=== PATIENT | male | born 1985 | race Caucasian/White ===

== ENCOUNTER 2024-03-02 08:13 | Outpatient (RCR) | payer BC, OTHER, SELFPAY ==
--- NOTE | 2024-03-02 10:22 | CTCCONSULT_ITS ---
[address] [address] RE: DOM SAAVEDRA D.O.B.: 1985 AGE: 38 DATE OF CONSULTATION: 03/02/2024 DIAGNOSIS: Elevated ferritin REFERRING PHYSICIAN: Kaia Figueredo PRIMARY PHYSICIAN :Kaia Figueredo REASON FOR CONSULTATION: Elevated ferritin concern for hemochromatosis HISTORY OF PRESENT ILLNESS: Patient is 38-year-old male who was diagnosed with Hodgkin lymphoma in 2014. Patient was treated wit h chemoradiation. His lymphoma was in the chest and lymph nodes. He had recurrence after 2 years an d at that time was treated with chemotherapy and autologous bone marrow transplant. As per patient h e has been in remission since then. He has never been told that he has elevated iron levels. No sim ilar complaints in the family. After transplant patient Says that his hormone started dysfunctioning and he was diagnosed with hypothyroidism as well as low testosterone levels. 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 GI: No nausea, vomiting, diarrhea or constipation. CVS: No palpitations or angina pains. Respiratory: No cough, chest pain or shortness of breath. VITAL SIGNS: Date 03/02/2024 Time 8:20 AM Vital Signs, Weight and PS ? ??T (F) (F) 97.8 ??P 92 ??B/P (mmHg) 151/96 ??Height (in) (inch) 73 ??Weight (lb) (lb) 225 ??BSA(D) (m*2) 2.26 PHYSICAL EXAMINATION: Conjunctivae is white. Oral cavity is dry. Chest is clear to auscultation. No wheezes or rales audible. CVS: Rhythm regular, no murmurs or gallops present. Abdomen is soft. No hepatosplenomegaly. Extremities: No pedal edema or cyanosis. LABORATORY DATA: Date Time ASSESSMENT: Elevated ferritin concern for hemochromatosis PLAN: ??Patient's ferritin is more than 2200 Reviewed imaging and shows that patient's liver is enlarged No masses in the liver Will get JAK2 erythropoietin and HFE panel Will get FibroScan for liver Will get quantification of iron in the liver by MRI Will start on phlebotomy to keep ferritin below 100 as long as patient's hemoglobin is at least 10 Will do phlebotomy 500 mL of whole blood and replace it with 1 L of fluid every week RTC in 4 weeks with above workup ORDERS: Comprehensive Metabolic Panel - 12 + CBC with Auto Diff Hereditary Hemochromatosis DNA analysis + Ferritin LD - 2 Mutation Quant + Erythropoieten Level MD Follow Up 4 Week + RETURN TO CLINIC: cc: Anthony Figueredo, Referring: Kaia Figueredo Electronically Signed 03/02/2024 at 10:19 AM Mat Frances MD Patient: DOM SAAVEDRA : 1985 MR#: [id number] Account: [id number] FOLLOW UP NOTE Page 2 of 3
== END 2024-03-29 23:59 | disposition home or self-care (01) ==
LOC: SCTC 08:13
PROVIDERS: PCP Nurse Practitioner Family; Referring Provider Nurse Practitioner Family; Visit Provider Internal Medicine Hematology & Oncology
DX: R79.89 Other specified abnormal findings of blood chemistry (principal); Z85.71 Personal history of Hodgkin lymphoma
CPT/HCPCS: 99213; G0463

== ENCOUNTER → 2024-03-18 | Outpatient (CLI) | payer BC, OTHER, SELFPAY ==
--- NOTE | 2024-03-18 10:00 | XR_ITS ---
Examination: Liver Elastography Exam date and time: February 17, 2024 0942 hours INDICATIONS: Abnormal liver function tests on laboratory examination January 11, 2024 FINDINGS: Liver 17.1 cm fatty liver irregular contour Normal hepatopedal portal venous flow Hepatic veins patent Tissue stiffness average 1.4 m/s, mild to moderate liver fibrosis IMPRESSION: Mild to moderate liver fibrosis
== END | disposition home or self-care (01) ==
LOC: CDIM 09:26
PROVIDERS: PCP Nurse Practitioner Family; Referring Provider Internal Medicine Hematology & Oncology; Visit Provider Internal Medicine Hematology & Oncology
DX: K74.00 Hepatic fibrosis, unspecified (principal)
CPT/HCPCS: 76981

== ENCOUNTER → 2024-04-18 | Outpatient (CLI) | payer BC, OTHER, SELFPAY ==
[2024-04-18 16:41] LABS: Basophils # (Auto) 0.1 Thou/mm3 (0.0-0.2); Basophils % (Auto) 1 % (0-2.5); Eosinophils # (Auto) 0.2 Thou/mm3 (0.0-0.5); Eosinophils % (Auto) 2 % (0-10); Hematocrit 41.7 % (41.0-53.0); Immature Granulocytes % (Auto) 1 % (0-0); Immature Granulocytes Auto 0.07 Thou/mm3 (0.00-0.00); Lymphocytes # (Auto) 2.9 Thou/mm3 (1.0-4.8); Lymphocytes % (Auto) 30 % (10-50); Mean Corpuscular HGB Conc 33.6 g/dl (31.0-37.0); Mean Corpuscular Hemoglobin 33.2 pg (25.0-35.0); Mean Corpuscular Volume 99 fL (80-100); Monocytes # (Auto) 0.8 Thou/mm3 (0.0-0.8); Monocytes % (Auto) 8 % (0-12); Neutrophils # (Auto) 5.7 Thou/mm3 (1.8-7.7); Neutrophils % (Auto) 59 % (37-80); Nucleated Red Blood Cell % 0 /100 WBC (0); Platelet Count 320 Thou/mm3 (140-440); Red Blood Count 4.22 Miln/mm3 (4.50-5.90); White Blood Count 9.6 Thou/mm3 (3.8-10.6)
[2024-04-18 16:53] LABS: Alanine Aminotransferase 83 U/L (10-49); Albumin, Serum 4.4 gm/dL (3.5-5.0); Albumin/Globulin Ratio 1.6 (1.2-2.2); Alkaline Phosphatase 66 U/L (46-116); Anion Gap 8 (7-16); Aspartate Amino Transferase 58 U/L (0-34); BUN/Creatinine Ratio 11 Ratio (12-20); Bilirubin,Total 0.5 mg/dL (0.3-1.2); Blood Urea Nitrogen 14 mg/dL (9-23); Calcium 9.4 mg/dL (8.3-10.6); Calcium (Corrected) 9.4 mg/dL (8.5-10.1); Carbon Dioxide 28.1 mMol/L (20.0-31.0); Chloride 103 mMol/L (98-107); Creatinine (Component) 1.3 mg/dL (0.6-1.3); Globulin 2.7 gm/dL (2.3-3.5); Glucose 83 mg/dL (74-106); Osmolality,Calculated 277 (275-295); Potassium 4.3 mMol/L (3.4-5.1); Sodium 139 mMol/L (136-145); Total Protein 7.1 gm/dL (5.7-8.2); eGFR > 60 See Note
== END | disposition home or self-care (01) ==
LOC: SCTO 15:05
PROVIDERS: PCP Nurse Practitioner Family; Referring Provider Internal Medicine Hematology & Oncology; Visit Provider Internal Medicine Hematology & Oncology
DX: R79.0 Abnormal level of blood mineral (principal)
CPT/HCPCS: 36415; 80053; 85025

== ENCOUNTER → 2024-04-25 | Outpatient (CLI) | payer BC, OTHER, SELFPAY ==
[2024-04-25 16:19] LABS: Basophils % (Auto) 0 % (0-2.5); Eosinophils # (Auto) 0.1 Thou/mm3 (0.0-0.5); Eosinophils % (Auto) 1 % (0-10); Hematocrit 39.1 % (41.0-53.0); Hemoglobin 13.2 g/dL (13.5-16.0); Immature Granulocytes % (Auto) 1 % (0-0); Immature Granulocytes Auto 0.08 Thou/mm3 (0.00-0.00); Lymphocytes # (Auto) 3.2 Thou/mm3 (1.0-4.8); Lymphocytes % (Auto) 32 % (10-50); Mean Corpuscular HGB Conc 33.8 g/dl (31.0-37.0); Mean Corpuscular Hemoglobin 34.1 pg (25.0-35.0); Mean Corpuscular Volume 101 fL (80-100); Monocytes # (Auto) 0.8 Thou/mm3 (0.0-0.8); Monocytes % (Auto) 8 % (0-12); Neutrophils # (Auto) 5.7 Thou/mm3 (1.8-7.7); Neutrophils % (Auto) 57 % (37-80); Nucleated Red Blood Cell % 0 /100 WBC (0); Platelet Count 299 Thou/mm3 (140-440); RDW Standard Deviation 47.8 fL (35.1-43.9); Red Blood Count 3.87 Miln/mm3 (4.50-5.90); White Blood Count 9.9 Thou/mm3 (3.8-10.6)
[2024-04-25 16:33] LABS: Ferritin 1016 ng/mL (10.5-307.3)
[2024-04-25 18:18] LABS: Alanine Aminotransferase 67 U/L (10-49); Albumin, Serum 4.4 gm/dL (3.5-5.0); Albumin/Globulin Ratio 1.8 (1.2-2.2); Alkaline Phosphatase 64 U/L (46-116); Anion Gap 10 (7-16); Aspartate Amino Transferase 38 U/L (0-34); BUN/Creatinine Ratio 15 Ratio (12-20); Bilirubin,Total 0.4 mg/dL (0.3-1.2); Blood Urea Nitrogen 19 mg/dL (9-23); Calcium 9.6 mg/dL (8.3-10.6); Calcium (Corrected) 9.6 mg/dL (8.5-10.1); Carbon Dioxide 26.2 mMol/L (20.0-31.0); Chloride 105 mMol/L (98-107); Creatinine (Component) 1.3 mg/dL (0.6-1.3); Globulin 2.4 gm/dL (2.3-3.5); Glucose 90 mg/dL (74-106); Osmolality,Calculated 283 (275-295); Sodium 141 mMol/L (136-145); Total Protein 6.8 gm/dL (5.7-8.2); eGFR > 60 See Note
== END | disposition home or self-care (01) ==
LOC: SCTO 14:56
PROVIDERS: PCP Nurse Practitioner Family; Referring Provider Internal Medicine Hematology & Oncology; Visit Provider Internal Medicine Hematology & Oncology
DX: R79.0 Abnormal level of blood mineral (principal)
CPT/HCPCS: 36415; 80053; 82728; 85025

== ENCOUNTER 2024-04-26 14:40 | Outpatient (RCR) | payer BC, OTHER, SELFPAY ==
[2024-04-19 15:08] LABS: Ferritin 1422 ng/mL (10.5-307.3)
== END 2024-04-29 23:59 | disposition home or self-care (01) ==
LOC: SCTC 14:40
PROVIDERS: PCP Nurse Practitioner Family; Referring Provider Nurse Practitioner Family; Visit Provider Internal Medicine Hematology & Oncology
DX: R79.0 Abnormal level of blood mineral (principal)
CPT/HCPCS: 82728; 99195; J7030

== ENCOUNTER → 2024-05-02 | Outpatient (CLI) | payer BC, OTHER, SELFPAY ==
[2024-05-02 16:00] LABS: Misc Send Out* See Sep Rpt
[2024-05-02 16:36] LABS: Basophils # (Auto) 0.1 Thou/mm3 (0.0-0.2); Basophils % (Auto) 1 % (0-2.5); Eosinophils # (Auto) 0.2 Thou/mm3 (0.0-0.5); Eosinophils % (Auto) 2 % (0-10); Hematocrit 35.5 % (41.0-53.0); Hemoglobin 12.3 g/dL (13.5-16.0); Immature Granulocytes % (Auto) 1 % (0-0); Lymphocytes # (Auto) 2.6 Thou/mm3 (1.0-4.8); Lymphocytes % (Auto) 26 % (10-50); Mean Corpuscular HGB Conc 34.6 g/dl (31.0-37.0); Mean Corpuscular Hemoglobin 34.5 pg (25.0-35.0); Mean Corpuscular Volume 99 fL (80-100); Monocytes # (Auto) 0.7 Thou/mm3 (0.0-0.8); Monocytes % (Auto) 7 % (0-12); Neutrophils # (Auto) 6.4 Thou/mm3 (1.8-7.7); Neutrophils % (Auto) 63 % (37-80); Nucleated Red Blood Cell # 0.05 Thou/mm3 (0.00-0.00); Nucleated Red Blood Cell % 1 /100 WBC (0); Platelet Count 284 Thou/mm3 (140-440); RDW Standard Deviation 47.9 fL (35.1-43.9); Red Blood Count 3.57 Miln/mm3 (4.50-5.90); White Blood Count 10.1 Thou/mm3 (3.8-10.6)
[2024-05-02 16:50] LABS: Alanine Aminotransferase 64 U/L (10-49); Albumin/Globulin Ratio 1.7 (1.2-2.2); Alkaline Phosphatase 63 U/L (46-116); Anion Gap 7 (7-16); Aspartate Amino Transferase 48 U/L (0-34); BUN/Creatinine Ratio 13 Ratio (12-20); Bilirubin,Total 0.5 mg/dL (0.3-1.2); Blood Urea Nitrogen 17 mg/dL (9-23); Calcium 9.3 mg/dL (8.3-10.6); Calcium (Corrected) 9.3 mg/dL (8.5-10.1); Carbon Dioxide 28.9 mMol/L (20.0-31.0); Chloride 104 mMol/L (98-107); Creatinine (Component) 1.3 mg/dL (0.6-1.3); Globulin 2.4 gm/dL (2.3-3.5); Glucose 87 mg/dL (74-106); Osmolality,Calculated 279 (275-295); Potassium 4.3 mMol/L (3.4-5.1); Sodium 140 mMol/L (136-145); Total Protein 6.4 gm/dL (5.7-8.2); eGFR > 60 See Note
[2024-05-02 16:54] LABS: Ferritin 1163 ng/mL (10.5-307.3)
== END | disposition home or self-care (01) ==
LOC: SCTO 15:39
PROVIDERS: PCP Family Medicine; Referring Provider Internal Medicine Hematology & Oncology; Visit Provider Internal Medicine Hematology & Oncology
DX: R79.89 Other specified abnormal findings of blood chemistry (principal)
CPT/HCPCS: 36415; 80053; 82668; 82728; 85025

== ENCOUNTER → 2024-05-09 | Outpatient (CLI) | payer BC, OTHER, SELFPAY ==
[2024-05-09 14:39] LABS: Basophils % (Auto) 1 % (0-2.5); Eosinophils # (Auto) 0.2 Thou/mm3 (0.0-0.5); Eosinophils % (Auto) 2 % (0-10); Hematocrit 39.4 % (41.0-53.0); Hemoglobin 12.8 g/dL (13.5-16.0); Immature Granulocytes % (Auto) 1 % (0-0); Immature Granulocytes Auto 0.06 Thou/mm3 (0.00-0.00); Lymphocytes # (Auto) 2.8 Thou/mm3 (1.0-4.8); Lymphocytes % (Auto) 33 % (10-50); Mean Corpuscular HGB Conc 32.5 g/dl (31.0-37.0); Mean Corpuscular Hemoglobin 33.5 pg (25.0-35.0); Mean Corpuscular Volume 103 fL (80-100); Monocytes # (Auto) 0.7 Thou/mm3 (0.0-0.8); Monocytes % (Auto) 8 % (0-12); Neutrophils # (Auto) 4.8 Thou/mm3 (1.8-7.7); Neutrophils % (Auto) 56 % (37-80); Nucleated Red Blood Cell % 0 /100 WBC (0); Platelet Count 331 Thou/mm3 (140-440); RDW Standard Deviation 54.4 fL (35.1-43.9); Red Blood Count 3.82 Miln/mm3 (4.50-5.90); White Blood Count 8.5 Thou/mm3 (3.8-10.6)
[2024-05-09 14:52] LABS: Ferritin 1072 ng/mL (10.5-307.3)
== END | disposition home or self-care (01) ==
LOC: SCTO 13:17
PROVIDERS: PCP Nurse Practitioner Family; Referring Provider Internal Medicine Hematology & Oncology; Visit Provider Internal Medicine Hematology & Oncology
DX: R79.89 Other specified abnormal findings of blood chemistry (principal)
CPT/HCPCS: 36415; 82728; 85025

== ENCOUNTER → 2024-05-17 | Outpatient (CLI) | payer BC, OTHER, SELFPAY ==
[2024-05-17 16:18] LABS: Misc Send Out* See Sep Rpt
[2024-05-17 18:42] LABS: Basophils # (Auto) 0.1 Thou/mm3 (0.0-0.2); Basophils % (Auto) 1 % (0-2.5); Eosinophils # (Auto) 0.2 Thou/mm3 (0.0-0.5); Eosinophils % (Auto) 2 % (0-10); Hematocrit 36.6 % (41.0-53.0); Hemoglobin 11.9 g/dL (13.5-16.0); Immature Granulocytes % (Auto) 1 % (0-0); Immature Granulocytes Auto 0.07 Thou/mm3 (0.00-0.00); Lymphocytes # (Auto) 2.7 Thou/mm3 (1.0-4.8); Lymphocytes % (Auto) 31 % (10-50); Mean Corpuscular HGB Conc 32.5 g/dl (31.0-37.0); Mean Corpuscular Hemoglobin 34.5 pg (25.0-35.0); Mean Corpuscular Volume 106 fL (80-100); Monocytes # (Auto) 0.8 Thou/mm3 (0.0-0.8); Monocytes % (Auto) 9 % (0-12); Neutrophils # (Auto) 4.9 Thou/mm3 (1.8-7.7); Neutrophils % (Auto) 56 % (37-80); Nucleated Red Blood Cell # 0.03 Thou/mm3 (0.00-0.00); Nucleated Red Blood Cell % 0 /100 WBC (0); Platelet Count 292 Thou/mm3 (140-440); Red Blood Count 3.45 Miln/mm3 (4.50-5.90); White Blood Count 8.8 Thou/mm3 (3.8-10.6)
[2024-05-17 18:54] LABS: Alanine Aminotransferase 66 U/L (10-49); Albumin/Globulin Ratio 1.7 (1.2-2.2); Alkaline Phosphatase 66 U/L (46-116); Anion Gap 10 (7-16); Aspartate Amino Transferase 45 U/L (0-34); BUN/Creatinine Ratio 12 Ratio (12-20); Bilirubin,Total 0.3 mg/dL (0.3-1.2); Blood Urea Nitrogen 14 mg/dL (9-23); Calcium 9.1 mg/dL (8.3-10.6); Calcium (Corrected) 9.1 mg/dL (8.5-10.1); Carbon Dioxide 27.5 mMol/L (20.0-31.0); Chloride 104 mMol/L (98-107); Creatinine (Component) 1.2 mg/dL (0.6-1.3); Globulin 2.3 gm/dL (2.3-3.5); Glucose 85 mg/dL (74-106); LDH (Lactate Dehydrogenase) 216 U/L (120-246); Osmolality,Calculated 280 (275-295); Potassium 4.2 mMol/L (3.4-5.1); Sodium 141 mMol/L (136-145); Total Protein 6.3 gm/dL (5.7-8.2); eGFR > 60 See Note
[2024-05-17 19:43] LABS: Ferritin 777 ng/mL (10.5-307.3); Iron 260 mcg/dL (65-175); Percent Iron Saturation 89 % (20-55); Total Iron Binding Capacity 289 mcg/dL (250-425); Unsaturated Iron Binding 29 (225-295)
[2024-05-25 06:53] LABS: Haptoglobin* 144 mg/dL (43-212)
== END | disposition home or self-care (01) ==
LOC: COPL 15:54 → SCTO 16:03
PROVIDERS: PCP Nurse Practitioner Family; Referring Provider Internal Medicine Hematology & Oncology; Visit Provider Internal Medicine Hematology & Oncology
DX: R79.0 Abnormal level of blood mineral (principal)
CPT/HCPCS: 36415; 80053; 81256; 82105; 82728; 82746; 83010; 83540; 83550; 83615; 85025

== ENCOUNTER → 2024-05-24 | Outpatient (CLI) | payer BC, OTHER, SELFPAY ==
[2024-05-24 17:40] LABS: Basophils # (Auto) 0.1 Thou/mm3 (0.0-0.2); Basophils % (Auto) 1 % (0-2.5); Eosinophils # (Auto) 0.2 Thou/mm3 (0.0-0.5); Eosinophils % (Auto) 2 % (0-10); Hematocrit 37.4 % (41.0-53.0); Hemoglobin 12.3 g/dL (13.5-16.0); Immature Granulocytes % (Auto) 1 % (0-0); Immature Granulocytes Auto 0.04 Thou/mm3 (0.00-0.00); Lymphocytes # (Auto) 2.5 Thou/mm3 (1.0-4.8); Lymphocytes % (Auto) 30 % (10-50); Mean Corpuscular HGB Conc 32.9 g/dl (31.0-37.0); Mean Corpuscular Hemoglobin 34.9 pg (25.0-35.0); Mean Corpuscular Volume 106 fL (80-100); Monocytes # (Auto) 0.7 Thou/mm3 (0.0-0.8); Monocytes % (Auto) 9 % (0-12); Neutrophils % (Auto) 59 % (37-80); Nucleated Red Blood Cell # 0.02 Thou/mm3 (0.00-0.00); Nucleated Red Blood Cell % 0 /100 WBC (0); Platelet Count 275 Thou/mm3 (140-440); RDW Standard Deviation 58.4 fL (35.1-43.9); Red Blood Count 3.52 Miln/mm3 (4.50-5.90); White Blood Count 8.5 Thou/mm3 (3.8-10.6)
[2024-05-24 18:01] LABS: Ferritin 643 ng/mL (10.5-307.3)
== END | disposition home or self-care (01) ==
LOC: SCTO 16:16
PROVIDERS: PCP Nurse Practitioner Family; Referring Provider Internal Medicine Hematology & Oncology; Visit Provider Internal Medicine Hematology & Oncology
DX: R79.0 Abnormal level of blood mineral (principal)
CPT/HCPCS: 36415; 82728; 85025

== ENCOUNTER 2024-05-25 12:55 | Outpatient (RCR) | payer BC, OTHER, SELFPAY ==
--- NOTE | 2024-05-29 14:52 | CTCFLWUP_ITS ---
Patient: DOM SAAVEDRA : 1985 Page 2 of 3 FOLLOW UP NOTE DATE OF SERVICE: 05/12/2024 NAME: DOM SAAVEDRA ACCOUNT: [id number] : 1985 AGE: 38 INTERVAL HISTORY: No new complaints HISTORY OF PRESENT ILLNESS: Patient is here referred to establish care for elevated ferritin and management. Patient is 38-year-old male who was diagnosed with Hodgkin lymphoma in 2014. Patient was treated with chemoradiation. His lymphoma was in the chest and lymph nodes. He had recurrence after 2 years and at that time was treated with chemotherapy and autologous bone marrow transplant. As per patient he has been in remission since then. He has never been told that he has elevated iron levels. No similar complaints in the family. After transplant patient Says that his hormone started dysfunctioning and he was diagnosed with hypothyroidism as well as low testosterone levels. OTHER MEDICAL HISTORY/CONDITIONS: HX HODGKINS LYMPHOMA HYPOTHYROIDISM DYSLIPIDEMIA GOUT ARTHRITIS PSORIASIS LOW TESTERONE BILATERAL HIP SURGERY TONSILLECTOMY AT 4 YEARS OLD EAR SURGERY NASAL SEPTUM SURGERY ?Clone Other Med Hx? 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 Adthyza - 97.5 mg 1 tab Daily 2. tamoxifen - 20 mg 1 tab Daily 3. testosterone cypionate - 200 mg/mL 0.5 mL Weekly?Palabra Meds? Medications Last Reconciled by Jordana Chou MA on 05/12/2024 ALLERGIES: No Known Allergies REVIEW OF SYSTEMS: A complete 14-point review of systems was performed and is negative except as noted in interval history. PHYSICAL EXAMINATION: VITAL SIGNS: Temperature?96.9, B/P?148/100, Oxygen?Saturation?100% Weight?234?lbs (Change?since?05/10/24:?-2.2?lbs) PAIN: 0 - No pain ECOG Performance Status: 0 - Asymptomatic and fully active GENERAL APPEARANCE: Appears well, in no apparent distress, appropriately interactive. HEENT: Normocephalic, no temporal wasting, normal conjunctiva, no scleral icterus, normal hearing, lips without lesions, neck normal range of motion. CARDIOVASCULAR: Not assessed. PULMONARY: Normal respiratory effort, no respiratory distress or use of accessory muscles, speaking in full sentences, no tachypnea. EXTREMITIES: No pedal edema or cyanosis. SKIN: Normal skin appearance. NEUROLOGIC: Alert and oriented x4. PSHYCHIATRIC: Appropriate affect, mood normal, behavior normal, intact thought and speech. LABORATORY DATA: I have personally reviewed and interpreted each of the patient?s relevant lab tests, abnormal findings are below: Date 05/24/24 ??WHITE?BLOOD?COUNT?(Thou/mm3) 8.5 ??RED?BLOOD?COUNT?(Miln/mm3) 3.52?L ??HEMOGLOBIN?(gm/dl) 12.3?L ??HEMATOCRIT?(%) 37.4?L ??PLATELET?COUNT?(Thou/mm3) 275 ??NEUTROPHILS?%,?AUTO?(%) 59 ??LYMPH?%,?AUTO?(%) 30 ??NEUTROPHILS,?AUTO?(Thou/mm3) 5.0 ASSESSMENT/PLAN: Elevated ferritin concern for hemochromatosis ??Patient's ferritin is more than 2200 Reviewed imaging and shows that patient's liver is enlarged No masses in the liver Will get JAK2 erythropoietin and HFE panel FibroScan shows mild to moderate liver fibrosis. Tissue stiffness 1.4 m/s Will get quantification of iron in the liver by MRI Will start on phlebotomy to keep ferritin below 100 as long as patient's hemoglobin is at least 10 Will do phlebotomy 500 mL of whole blood and replace it with 1 L of fluid every week CBC ferritin iron studies RETURN TO CLINIC: I will see him back in the clinic in 3 months. BILLING AND COMPLIANCE: I reviewed external records from providers outside my specialty as summarized above. I spent a total of 50 minutes on this patient?s care on the day of their visit excluding time spent related to any billed procedures. This time includes time spent with the patient as well as time spent documenting in the medical record, reviewing patients records and tests, obtaining history, placing orders, communicating with other healthcare professionals, counseling the patient, family or caregiver, and/or care coordination for the diagnoses above. Electronically Signed by: Mat Frances MD T: 2:50 PM CC: PCP: Fausto Nino Referring: Fausto Nino This document was completed utilizing speech recognition software. Grammatical errors, random word insertions, pronoun errors, and incomplete sentences are an occasional consequence of this system due to software limitations, ambient noise, and hardware issues. Any formal questions or concerns about the content, text or information contained within the body of this dictation should be directly addressed to the provider for clarification.
== END 2024-05-27 23:59 | disposition home or self-care (01) ==
LOC: SCTC 12:55
PROVIDERS: PCP Family Medicine; Referring Provider Family Medicine; Visit Provider Internal Medicine Hematology & Oncology
DX: R79.89 Other specified abnormal findings of blood chemistry (principal); R16.0 Hepatomegaly, not elsewhere classified; Z85.71 Personal history of Hodgkin lymphoma; Z92.21 Personal history of antineoplastic chemotherapy; Z92.3 Personal history of irradiation; Z94.81 Bone marrow transplant status; E03.9 Hypothyroidism, unspecified
CPT/HCPCS: 36430; 80053; 82607; 82728; 82746; 83540; 83550; 85025; 96361; 99195; 99212; A4216; J7030; J7040; G0463

== ENCOUNTER → 2024-05-31 | Outpatient (CLI) | payer BC, OTHER, SELFPAY ==
[2024-05-31 10:52] LABS: Basophils # (Auto) 0.1 Thou/mm3 (0.0-0.2); Basophils % (Auto) 1 % (0-2.5); Eosinophils # (Auto) 0.2 Thou/mm3 (0.0-0.5); Eosinophils % (Auto) 3 % (0-10); Hematocrit 42.7 % (41.0-53.0); Hemoglobin 13.8 g/dL (13.5-16.0); Immature Granulocytes % (Auto) 1 % (0-0); Immature Granulocytes Auto 0.06 Thou/mm3 (0.00-0.00); Lymphocytes # (Auto) 2.7 Thou/mm3 (1.0-4.8); Lymphocytes % (Auto) 37 % (10-50); Mean Corpuscular HGB Conc 32.3 g/dl (31.0-37.0); Mean Corpuscular Volume 108 fL (80-100); Monocytes # (Auto) 0.7 Thou/mm3 (0.0-0.8); Monocytes % (Auto) 9 % (0-12); Neutrophils # (Auto) 3.7 Thou/mm3 (1.8-7.7); Neutrophils % (Auto) 50 % (37-80); Nucleated Red Blood Cell % 0 /100 WBC (0); Platelet Count 294 Thou/mm3 (140-440); RDW Standard Deviation 58.9 fL (35.1-43.9); Red Blood Count 3.94 Miln/mm3 (4.50-5.90); White Blood Count 7.4 Thou/mm3 (3.8-10.6)
[2024-05-31 11:13] LABS: Ferritin 605 ng/mL (10.5-307.3)
[2024-05-31 11:18] LABS: Alanine Aminotransferase 47 U/L (10-49); Albumin, Serum 4.2 gm/dL (3.5-5.0); Albumin/Globulin Ratio 1.8 (1.2-2.2); Alkaline Phosphatase 70 U/L (46-116); Anion Gap 7 (7-16); Aspartate Amino Transferase 37 U/L (0-34); BUN/Creatinine Ratio 10 Ratio (12-20); Bilirubin,Total 0.5 mg/dL (0.3-1.2); Blood Urea Nitrogen 11 mg/dL (9-23); Calcium 9.3 mg/dL (8.3-10.6); Calcium (Corrected) 9.3 mg/dL (8.5-10.1); Carbon Dioxide 28.6 mMol/L (20.0-31.0); Chloride 108 mMol/L (98-107); Creatinine (Component) 1.1 mg/dL (0.6-1.3); Globulin 2.4 gm/dL (2.3-3.5); Glucose 97 mg/dL (74-106); Osmolality,Calculated 286 (275-295); Potassium 4.3 mMol/L (3.4-5.1); Sodium 144 mMol/L (136-145); Total Protein 6.6 gm/dL (5.7-8.2); eGFR > 60 See Note
== END | disposition home or self-care (01) ==
LOC: SCTO 09:35
PROVIDERS: PCP Family Medicine; Referring Provider Internal Medicine Hematology & Oncology; Visit Provider Internal Medicine Hematology & Oncology
DX: R79.0 Abnormal level of blood mineral (principal)
CPT/HCPCS: 36415; 80053; 82105; 82728; 85025

== ENCOUNTER 2024-06-21 13:16 | Outpatient (RCR) | payer BC, OTHER, SELFPAY | END 2024-06-27 23:59 | disposition home or self-care (01) | LOC: SCTC 13:16 | PROVIDERS: PCP Nurse Practitioner Family; Referring Provider Nurse Practitioner Family; Visit Provider Internal Medicine Hematology & Oncology | DX: R79.0 Abnormal level of blood mineral (principal); Z85.71 Personal history of Hodgkin lymphoma; Z92.3 Personal history of irradiation; Z92.21 Personal history of antineoplastic chemotherapy; R16.0 Hepatomegaly, not elsewhere classified | CPT/HCPCS: 96360; 99195; J7030 ==

== ENCOUNTER → 2024-06-21 | Outpatient (CLI) | payer BC, OTHER, SELFPAY ==
[2024-06-21 10:17] LABS: Basophils # (Auto) 0.1 Thou/mm3 (0.0-0.2); Basophils % (Auto) 1 % (0-2.5); Eosinophils # (Auto) 0.2 Thou/mm3 (0.0-0.5); Eosinophils % (Auto) 2 % (0-10); Hematocrit 43.8 % (41.0-53.0); Hemoglobin 14.7 g/dL (13.5-16.0); Immature Granulocytes % (Auto) 0 % (0-0); Immature Granulocytes Auto 0.04 Thou/mm3 (0.00-0.00); Lymphocytes # (Auto) 2.6 Thou/mm3 (1.0-4.8); Lymphocytes % (Auto) 28 % (10-50); Mean Corpuscular HGB Conc 33.6 g/dl (31.0-37.0); Mean Corpuscular Hemoglobin 34.8 pg (25.0-35.0); Mean Corpuscular Volume 104 fL (80-100); Monocytes # (Auto) 0.8 Thou/mm3 (0.0-0.8); Monocytes % (Auto) 8 % (0-12); Neutrophils # (Auto) 5.6 Thou/mm3 (1.8-7.7); Neutrophils % (Auto) 61 % (37-80); Nucleated Red Blood Cell % 0 /100 WBC (0); Platelet Count 304 Thou/mm3 (140-440); RDW Standard Deviation 46.4 fL (35.1-43.9); Red Blood Count 4.22 Miln/mm3 (4.50-5.90); White Blood Count 9.2 Thou/mm3 (3.8-10.6)
[2024-06-21 10:33] LABS: Ferritin 464 ng/mL (10.5-307.3)
[2024-06-21 10:35] LABS: Alanine Aminotransferase 56 U/L (10-49); Albumin, Serum 4.5 gm/dL (3.5-5.0); Albumin/Globulin Ratio 1.8 (1.2-2.2); Alkaline Phosphatase 67 U/L (46-116); Anion Gap 8 (7-16); Aspartate Amino Transferase 46 U/L (0-34); BUN/Creatinine Ratio 9 Ratio (12-20); Bilirubin,Total 0.2 mg/dL (0.3-1.2); Blood Urea Nitrogen 11 mg/dL (9-23); Carbon Dioxide 27.6 mMol/L (20.0-31.0); Chloride 106 mMol/L (98-107); Creatinine (Component) 1.2 mg/dL (0.6-1.3); Globulin 2.5 gm/dL (2.3-3.5); Glucose 98 mg/dL (74-106); Osmolality,Calculated 282 (275-295); Potassium 4.7 mMol/L (3.4-5.1); Sodium 142 mMol/L (136-145); eGFR > 60 See Note
== END | disposition home or self-care (01) ==
PROVIDERS: PCP Nurse Practitioner Family; Referring Provider Internal Medicine Hematology & Oncology; Visit Provider Internal Medicine Hematology & Oncology
DX: R79.0 Abnormal level of blood mineral (principal)
CPT/HCPCS: 36415; 80053; 82728; 85025

== ENCOUNTER → 2024-07-06 | Outpatient (CLI) | payer BC, OTHER, SELFPAY ==
[2024-07-06 10:32] LABS: Basophils % (Auto) 0 % (0-2.5); Eosinophils # (Auto) 0.1 Thou/mm3 (0.0-0.5); Eosinophils % (Auto) 1 % (0-10); Hematocrit 42.6 % (41.0-53.0); Hemoglobin 14.3 g/dL (13.5-16.0); Immature Granulocytes % (Auto) 1 % (0-0); Immature Granulocytes Auto 0.05 Thou/mm3 (0.00-0.00); Lymphocytes # (Auto) 3.1 Thou/mm3 (1.0-4.8); Lymphocytes % (Auto) 30 % (10-50); Mean Corpuscular HGB Conc 33.6 g/dl (31.0-37.0); Mean Corpuscular Hemoglobin 34.3 pg (25.0-35.0); Mean Corpuscular Volume 102 fL (80-100); Monocytes # (Auto) 0.7 Thou/mm3 (0.0-0.8); Monocytes % (Auto) 7 % (0-12); Neutrophils # (Auto) 6.3 Thou/mm3 (1.8-7.7); Neutrophils % (Auto) 61 % (37-80); Nucleated Red Blood Cell % 0 /100 WBC (0); Platelet Count 296 Thou/mm3 (140-440); RDW Standard Deviation 45.8 fL (35.1-43.9); Red Blood Count 4.17 Miln/mm3 (4.50-5.90); White Blood Count 10.3 Thou/mm3 (3.8-10.6)
[2024-07-06 10:48] LABS: Alanine Aminotransferase 46 U/L (10-49); Albumin, Serum 4.2 gm/dL (3.5-5.0); Albumin/Globulin Ratio 1.6 (1.2-2.2); Alkaline Phosphatase 70 U/L (46-116); Anion Gap 8 (7-16); Aspartate Amino Transferase 39 U/L (0-34); BUN/Creatinine Ratio 10 Ratio (12-20); Bilirubin,Total 0.2 mg/dL (0.3-1.2); Blood Urea Nitrogen 11 mg/dL (9-23); Calcium 9.3 mg/dL (8.3-10.6); Calcium (Corrected) 9.3 mg/dL (8.5-10.1); Carbon Dioxide 27.9 mMol/L (20.0-31.0); Chloride 108 mMol/L (98-107); Creatinine (Component) 1.1 mg/dL (0.6-1.3); Globulin 2.7 gm/dL (2.3-3.5); Glucose 116 mg/dL (74-106); Osmolality,Calculated 287 (275-295); Potassium 4.1 mMol/L (3.4-5.1); Sodium 144 mMol/L (136-145); Total Protein 6.9 gm/dL (5.7-8.2); eGFR > 60 See Note
[2024-07-06 10:49] LABS: Ferritin 310 ng/mL (10.5-307.3)
== END | disposition home or self-care (01) ==
LOC: SCTO 09:17
PROVIDERS: PCP Nurse Practitioner Family; Referring Provider Internal Medicine Hematology & Oncology; Visit Provider Internal Medicine Hematology & Oncology
DX: R79.0 Abnormal level of blood mineral (principal)
CPT/HCPCS: 36415; 80053; 82105; 82728; 85025

== ENCOUNTER 2024-07-27 13:01 | Outpatient (RCR) | payer BC, OTHER, SELFPAY ==
[2024-07-27 13:45] LABS: Ferritin 182 ng/mL (10.5-307.3)
== END 2024-07-27 23:59 | disposition home or self-care (01) ==
LOC: SCTC 13:01
PROVIDERS: PCP Nurse Practitioner Family; Referring Provider Nurse Practitioner Family; Visit Provider Internal Medicine Hematology & Oncology
DX: R79.0 Abnormal level of blood mineral (principal); Z85.71 Personal history of Hodgkin lymphoma; Z92.21 Personal history of antineoplastic chemotherapy; Z94.81 Bone marrow transplant status
CPT/HCPCS: 82728; 96360; 99195; J7030

== ENCOUNTER → 2024-07-27 | Outpatient (CLI) | payer BC, OTHER, SELFPAY ==
[2024-07-27 10:54] LABS: Basophils % (Auto) 0 % (0-2.5); Eosinophils # (Auto) 0.2 Thou/mm3 (0.0-0.5); Eosinophils % (Auto) 3 % (0-10); Hematocrit 45.7 % (41.0-53.0); Hemoglobin 15.2 g/dL (13.5-16.0); Immature Granulocytes % (Auto) 1 % (0-0); Immature Granulocytes Auto 0.04 Thou/mm3 (0.00-0.00); Lymphocytes # (Auto) 2.8 Thou/mm3 (1.0-4.8); Lymphocytes % (Auto) 37 % (10-50); Mean Corpuscular HGB Conc 33.3 g/dl (31.0-37.0); Mean Corpuscular Hemoglobin 34.5 pg (25.0-35.0); Mean Corpuscular Volume 104 fL (80-100); Monocytes # (Auto) 0.7 Thou/mm3 (0.0-0.8); Monocytes % (Auto) 9 % (0-12); Neutrophils # (Auto) 3.8 Thou/mm3 (1.8-7.7); Neutrophils % (Auto) 50 % (37-80); Nucleated Red Blood Cell % 0 /100 WBC (0); Platelet Count 289 Thou/mm3 (140-440); RDW Standard Deviation 49.6 fL (35.1-43.9); White Blood Count 7.5 Thou/mm3 (3.8-10.6)
[2024-07-27 10:58] LABS: Alanine Aminotransferase 45 U/L (10-49); Albumin, Serum 4.4 gm/dL (3.5-5.0); Albumin/Globulin Ratio 1.5 (1.2-2.2); Alkaline Phosphatase 81 U/L (46-116); Anion Gap 6 (7-16); Aspartate Amino Transferase 41 U/L (0-34); BUN/Creatinine Ratio 9 Ratio (12-20); Bilirubin,Total 0.2 mg/dL (0.3-1.2); Blood Urea Nitrogen 10 mg/dL (9-23); Calcium 9.6 mg/dL (8.3-10.6); Calcium (Corrected) 9.6 mg/dL (8.5-10.1); Carbon Dioxide 28.8 mMol/L (20.0-31.0); Chloride 108 mMol/L (98-107); Creatinine (Component) 1.1 mg/dL (0.6-1.3); Globulin 2.9 gm/dL (2.3-3.5); Glucose 103 mg/dL (74-106); Osmolality,Calculated 283 (275-295); Potassium 4.7 mMol/L (3.4-5.1); Sodium 143 mMol/L (136-145); Total Protein 7.3 gm/dL (5.7-8.2); eGFR > 60 See Note
== END | disposition home or self-care (01) ==
LOC: SCTO 09:31
PROVIDERS: PCP Nurse Practitioner Family; Referring Provider Internal Medicine Hematology & Oncology; Visit Provider Internal Medicine Hematology & Oncology
DX: R79.0 Abnormal level of blood mineral (principal)
CPT/HCPCS: 36415; 80053; 82105; 85025

== ENCOUNTER → 2024-08-09 | Outpatient (CLI) | payer BC, OTHER, SELFPAY ==
--- NOTE | 2024-08-09 13:17 | ECHO_ITS ---
Transthoracic Echo Report Ht (in): 73 Wt (lb): 230 Exam Location: Echo Lab Status: Preadmit Gymnastics Coach Or Instructor: HOUSTON Harper^^^^ Indications: Procedure Performed: BP: / HR: MEASUREMENTS (Male / Female) Normal Values 2D ECHO LV Diastolic Diameter PLAX 3.9 cm 4.2 - 5.9 / 3.9 - 5.3 cm LV Systolic Diameter PLAX 2.6 cm IVS Diastolic Thickness 0.9 cm 0.6 - 1.0 / 0.6 - 0.9 cm LVPW Diastolic Thickness 1.1 cm 0.6 - 1.0 / 0.6 - 0.9 cm LV Relative Wall Thickness 0.5 LVOT Diameter 2.0 cm Aortic Root Diameter 3.3 cm LA Systolic Diameter LX 3.0 cm 3.0 - 4.0 / 2.7 - 3.8 cm LV Ejection Fraction MOD 4C 60.0 % LV Ejection Fraction 4C AL 61.5 % LA Volume Index 22.9 cm?/m? 16 - 28 cm?/m? DOPPLER AV Peak Velocity 143.0 cm/s AV Peak Gradient 8.2 mmHg AV Mean Gradient 4.0 mmHg AV Velocity Time Integral 22.0 cm LVOT Peak Velocity 88.7 cm/s LVOT Peak Gradient 3.1 mmHg LVOT Velocity Time Integral 16.7 cm AV Area Cont Eq vti 2.4 cm? AV Area Cont Eq pk 1.9 cm? MV Area PHT 4.9 cm? Mitral E Point Velocity 59.4 cm/s Mitral A Point Velocity 104.0 cm/s Mitral E to A Ratio 0.6 LV E' Lateral Velocity 11.2 cm/s Mitral E to LV E' Lateral Ratio 5.3 LV E' Septal Velocity 10.0 cm/s Mitral E to LV E' Septal Ratio 6.0 TR Peak Velocity 252.0 cm/s TR Peak Gradient 25.4 mmHg PV Peak Velocity 122.0 cm/s PV Peak Gradient 6.0 mmHg RVOT Peak Velocity 64.3 cm/s FINDINGS Left Ventricle Normal left ventricular size, wall thickness, systolic function with no obvious regional wall motion abnormalities. There is grade I diastolic dysfunction of the left ventricle (impaired relaxation pattern). The left ventricular ejection fraction is normal, estimated at 55-60%. Right Ventricle The right ventricle is normal in size and systolic function. The estimated right ventricular systolic pressure, 30 mmHg. Left Atrium The left atrium is normal by two-dimensional, color flow and Doppler imaging with no structural abnormalities, no thrombus formation present. Right Atrium The right atrium is normal by two-dimensional imaging, color flow and Doppler imaging with no structural abnormalities, no thrombus formation present. Atrial Septum The interatrial septum appears normal with no evidence of a shunt. Aorta The aorta is normal by two-dimensional, color flow and Doppler interrogation. Mitral Valve Trace to mild mitral regurgitation. Aortic Valve The aortic valve is trileaflet and normal by two-dimensional, color flow and Doppler interrogation. There is no significant aortic valve regurgitation. Tricuspid Valve There is mild tricuspid valve regurgitation. Pulmonic Valve Trivial pulmonic valve regurgitation. Vessels The pulmonary artery appears normal. The inferior vena cava pulmonary and hepatic veins appear normal. Pericardium The pericardium is normal by two-dimensional imaging. There is no significant pericardial effusion. CONCLUSIONS Iindication: SOB - Abnormal labs Normal LV size and function. Estimated LVEF is 55 to 60%. Normal diastolic function. Normal LV RV size and function with normal RVSP. Trace MR and TR. Arnold Copeland (Electronically Signed) Final Date: 09 Aug 2024 20:49
== END | disposition home or self-care (01) ==
LOC: SDIM 08-11 07:48
PROVIDERS: PCP Nurse Practitioner Family; Referring Provider Internal Medicine Hematology & Oncology; Visit Provider Internal Medicine Hematology & Oncology
DX: I08.1 Rheumatic disorders of both mitral and tricuspid valves (principal)
CPT/HCPCS: 93306

== ENCOUNTER → 2024-08-09 | Outpatient (CLI) | payer BC, OTHER, SELFPAY ==
[2024-08-09 09:40] LABS: Basophils # (Auto) 0.1 Thou/mm3 (0.0-0.2); Basophils % (Auto) 1 % (0-2.5); Eosinophils # (Auto) 0.1 Thou/mm3 (0.0-0.5); Eosinophils % (Auto) 1 % (0-10); Hematocrit 41.5 % (41.0-53.0); Hemoglobin 14.4 g/dL (13.5-16.0); Immature Granulocytes % (Auto) 1 % (0-0); Immature Granulocytes Auto 0.04 Thou/mm3 (0.00-0.00); Lymphocytes # (Auto) 2.6 Thou/mm3 (1.0-4.8); Lymphocytes % (Auto) 39 % (10-50); Mean Corpuscular HGB Conc 34.7 g/dl (31.0-37.0); Mean Corpuscular Hemoglobin 33.9 pg (25.0-35.0); Mean Corpuscular Volume 98 fL (80-100); Monocytes # (Auto) 0.6 Thou/mm3 (0.0-0.8); Monocytes % (Auto) 8 % (0-12); Neutrophils # (Auto) 3.3 Thou/mm3 (1.8-7.7); Neutrophils % (Auto) 50 % (37-80); Nucleated Red Blood Cell % 0 /100 WBC (0); Platelet Count 318 Thou/mm3 (140-440); Red Blood Count 4.25 Miln/mm3 (4.50-5.90); White Blood Count 6.6 Thou/mm3 (3.8-10.6)
[2024-08-09 09:49] LABS: Alanine Aminotransferase 41 U/L (10-49); Albumin, Serum 4.7 gm/dL (3.5-5.0); Albumin/Globulin Ratio 1.7 (1.2-2.2); Alkaline Phosphatase 79 U/L (46-116); Anion Gap 8 (7-16); Aspartate Amino Transferase 46 U/L (0-34); BUN/Creatinine Ratio 7 Ratio (12-20); Bilirubin,Total 0.2 mg/dL (0.3-1.2); Blood Urea Nitrogen 8 mg/dL (9-23); Calcium 9.4 mg/dL (8.3-10.6); Calcium (Corrected) 9.4 mg/dL (8.5-10.1); Chloride 104 mMol/L (98-107); Creatinine (Component) 1.1 mg/dL (0.6-1.3); Globulin 2.7 gm/dL (2.3-3.5); Glucose 114 mg/dL (74-106); Osmolality,Calculated 274 (275-295); Potassium 4.3 mMol/L (3.4-5.1); Sodium 138 mMol/L (136-145); Total Protein 7.4 gm/dL (5.7-8.2); eGFR > 60 See Note
[2024-08-09 10:08] LABS: Ferritin 114 ng/mL (10.5-307.3)
== END | disposition home or self-care (01) ==
LOC: SCTO 08:09
PROVIDERS: PCP Nurse Practitioner Family; Referring Provider Internal Medicine Hematology & Oncology; Visit Provider Internal Medicine Hematology & Oncology
DX: R79.0 Abnormal level of blood mineral (principal)
CPT/HCPCS: 36415; 80053; 82105; 82728; 85025

== ENCOUNTER 2024-08-11 10:51 | Outpatient (RCR) | payer BC, OTHER, SELFPAY ==
--- NOTE | 2024-08-18 14:17 | CTCFLWUP_ITS ---
Patient: DOM SAAVEDRA : 1985 Page 3 of 5 FOLLOW UP NOTE DATE OF SERVICE: 08/11/2024 NAME: DOM SAAVEDRA ACCOUNT: [id number] : 1985 AGE: 39 INTERVAL HISTORY: Summary Urbano Everett, a 39yo male with hemochromatosis follow-up, has history of Hodgkin's lymphoma (2014) treated with chemotherapy and bone marrow transplant. Ferritin levels improved dramatically from >2000 ng/mL in December.currently through phlebotomy treatments. He reports feeling better with decreased joint pain and improved skin appearance. MRI showed enlarged liver (17.1 cm) with moderate fibrosis. Treatment plan includes monthly phlebotomy, referral to liver specialist, weight loss recommendations, and continued CPAP therapy for sleep apnea. Chief Complaint Follow-up visit for hemochromatosis management, feeling better History of Present Illness Urbano Everett, a patient with a history of Hodgkin's lymphoma treated in 2014 with chemotherapy and bone marrow transplant, presents for follow-up of hemochromatosis. He reports feeling a lot better since his last visit, with his ferritin levels approaching 100. The patient has started using a CPAP machine for sleep apnea, though he admits it has been challenging to adjust. Initially, he could only tolerate it for 30 minutes, but he has gradually increased usage to 1.5-2 hours per night. He notes improvements in his overall health, including less joint pain in his knees and ankles. The patient also mentions that his skin appearance has improved, with a reduction in the redness he previously experienced. Mr. Everett reports a significant improvement in his ferritin levels, which have decreased from over 2000 in December to around 100 currently. He has been undergoing regular phlebotomy treatments to manage his hemochromatosis. The frequency of these treatments has recently decreased from every two weeks to monthly, reflecting the improvement in his condition. The patient denies excessive alcohol consumption, stating he has been cutting down more and more. He expresses a willingness to work on weight loss and improve his overall health, acknowledging the impact of his condition on his liver. Medications and Supplements - Wegovy - Used for weight loss. Review of Systems General: Positive for feeling better. Respiratory: Positive for using CPAP. Musculoskeletal: Positive for improvement in joint pain, specifically knees and ankles.HISTORY OF PRESENT ILLNESS: Patient is here referred to establish care for elevated ferritin and management. Patient is 39-year-old male who was diagnosed with Hodgkin lymphoma in 2015. Patient was treated with chemoradiation. His lymphoma was in the chest and lymph nodes. He had recurrence after 2 years and at that time was treated with chemotherapy and autologous bone marrow transplant. As per patient he has been in remission since then. He has never been told that he has elevated iron levels. No similar complaints in the family. After transplant patient Says that his hormone started dysfunctioning and he was diagnosed with hypothyroidism as well as low testosterone levels. OTHER MEDICAL HISTORY/CONDITIONS: HX HODGKINS LYMPHOMA HYPOTHYROIDISM DYSLIPIDEMIA GOUT ARTHRITIS PSORIASIS LOW TESTERONE BILATERAL HIP SURGERY TONSILLECTOMY AT 4 YEARS OLD EAR SURGERY NASAL SEPTUM SURGERY ?Clone Other Med Hx? 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 Adthyza - 97.5 mg 1 tab Daily 2. tamoxifen - 20 mg 1 tab Daily 3. testosterone cypionate - 200 mg/mL 0.5 mL Weekly?Palabra Meds? Medications Last Reconciled by Skye Guthrie RN on 08/11/2024 ALLERGIES: No Known Allergies REVIEW OF SYSTEMS: A complete 14-point review of systems was performed and is negative except as noted in interval history. PHYSICAL EXAMINATION:?CloneBlock PE? VITAL SIGNS: Temperature?98.5, B/P?154/94, Oxygen?Saturation?98% Weight?230?lbs (Change?since?08/10/24:?-0.6?lbs) PAIN: 0 - No pain ECOG Performance Status: 0 - Asymptomatic and fully active GENERAL APPEARANCE: Appears well, in no apparent distress, appropriately interactive. HEENT: Normocephalic, no temporal wasting, normal conjunctiva, no scleral icterus, normal hearing, lips without lesions, neck normal range of motion. CARDIOVASCULAR: Not assessed. PULMONARY: Normal respiratory effort, no respiratory distress or use of accessory muscles, speaking in full sentences, no tachypnea. EXTREMITIES: No pedal edema or cyanosis. SKIN: Normal skin appearance. NEUROLOGIC: Alert and oriented x4. PSHYCHIATRIC: Appropriate affect, mood normal, behavior normal, intact thought and speech. Physical Examination General: Patient does not look red like before. Skin: Some scars visible on eyelids and other soft spots. Previously had red bumps in these areas. Laboratory, Imaging, and Diagnostic Test Results - Date: 08/10/2024 - Ferritin: 14 ng/mL - Previous results: - Ferritin: ~100 ng/mL (08/09/2024), 1422 ng/mL (02/2024), ~2000 ng/mL (12/2023) - MRI Abdomen (date not specified): - Liver: Enlarged (17.1 cm), fatty liver, no focal liver lesions - Gallbladder: Normal, clinical gallbladder stones present - Common bile duct: Normal - Impression: Mild hepatomegaly, fatty liver, moderate liver fibrosis - Echocardiogram (date not specified): Normal heart function, normal call - Genetic testing (date not specified): - Hemochromatosis gene: Homozygous for H63D mutation - Cancer markers: Negative - JAK2 mutation: Positive (specific result not provided) - Other blood tests (dates not specified): - FLORINDA: Negative - Miscellaneous tests: Negative LABORATORY DATA: I have personally reviewed and interpreted each of the patient?s relevant lab tests, abnormal findings are below: Date 07/27/24 08/09/24 ??WHITE?BLOOD?COUNT?(Thou/mm3) 7.5 6.6 ??RED?BLOOD?COUNT?(Miln/mm3) 4.40?L 4.25?L ??HEMOGLOBIN?(gm/dl) 15.2 14.4 ??HEMATOCRIT?(%) 45.7 41.5 ??PLATELET?COUNT?(Thou/mm3) 289 318 ??NEUTROPHILS?%,?AUTO?(%) 50 50 ??LYMPH?%,?AUTO?(%) 37 39 ??NEUTROPHILS,?AUTO?(Thou/mm3) 3.8 3.3 ??GLUCOSE,RANDOM?(mg/dL) 103 114?H ??BLOOD?UREA?NITROGEN?(mg/dL) 10 8?L ??CREATININE?(mg/dL) 1.10 1.10 ??SODIUM?(mmol/L) 143 138 ??POTASSIUM?(mmol/L) 4.7 4.3 ??CHLORIDE?(mmol/L) 108?H 104 ??CrCl?(CandG)?(ml/min) 111.11 111.85 ??AST/SGOT?(Unit/L) 41?H 46?H ??ALT/SGPT?(Unit/L) 45 41 ??ALKALINE?PHOSPHATASE?(Unit/L) 81 79 ??BILIRUBIN,?TOTAL?(mg/dL) 0.2?L 0.2?L ??PROTEIN?TOTAL?(gm/dl) 7.3 7.4 ??ALBUMIN,?SERUM?(gm/dl) 4.4 4.7 ??GLOBULIN?(gm/dl) 2.9 2.7 ??ALBUMIN/GLOBULIN?RATIO 1.5 1.7 ??CALCIUM,?SERUM?(mg/dL) 9.6 9.4 ??CALCIUM?SERUM?(CORRECTED)?(mg/dL) 9.6 9.4 ASSESSMENT/PLAN:?Brina Frances Assessment/Plan? Elevated ferritin concern for hemochromatosis ??Urbano Everett, 39-year-old male with history of Hodgkin's lymphoma (2014), chemotherapy, and bone marrow transplant, presenting for follow-up of hemochromatosis and liver fibrosis. Hemochromatosis Assessment: Patient has been undergoing phlebotomy treatments for hemochromatosis. Ferritin levels have significantly improved from initial levels of 2000+ in December to 1422 in February, and now approaching 100. Recent ferritin level was 14 on Thursday. The patient reports feeling better overall, with improvements in joint pain and general well-being. 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 Heart function is normal with no evidence of iron deposition. Plan: - Continue phlebotomy treatments, transitioning from every 2 weeks to monthly - Target ferritin level: below 50 - Provide IV fluids during phlebotomy treatments - Advise patient to avoid iron-rich foods - Schedule follow-up in 3 months Moderate Liver Fibrosis with Fatty Liver Assessment: MRI of abdomen reveals enlarged liver (17.1 cm), consistent with moderate liver fibrosis and fatty liver. No focal liver lesions were identified. Gallbladder appears normal with some clinical gallbladder stones noted. Common bile duct is normal. Plan: - Refer patient to liver specialist at higher-level center ([facility] or [place]) - Recommend weight loss to primary care physician - Suggest consideration of weight-loss medication - Encourage exercise plan - Consider fasting as a potential weight loss strategy History of Hodgkin's Lymphoma Assessment: Patient has a history of Hodgkin's lymphoma diagnosed in 2014, treated with chemotherapy and bone marrow transplant. Currently in remission. Recent tests, including JAK2 mutation analysis, were negative for recurrence or other hematologic abnormalities. Plan: - Continue monitoring for recurrence as per oncology protocol Obstructive Sleep Apnea Assessment: Patient reports recent initiation of CPAP therapy. Currently able to tolerate CPAP for 1.5-2 hours per night, improved from initial tolerance of 30 minutes. Plan: - Encourage continued use and gradual increase in CPAP tolerance - Follow up on CPAP adherence and symptom improvement at next visitFibroScan shows mild to moderate liver fibrosis. Tissue stiffness 1.4 m/s Will get quantification of iron in the liver by MRI Will start on phlebotomy to keep ferritin below 100 as long as patient's hemoglobin is at least 10 Will do phlebotomy 500 mL of whole blood and replace it with 1 L of fluid every week CBC ferritin iron studies RETURN TO CLINIC: I will see him back in the clinic in 3 months. BILLING AND COMPLIANCE: I reviewed external records from providers outside my specialty as summarized above. I spent a total of 50 minutes on this patient?s care on the day of their visit excluding time spent related to any billed procedures. This time includes time spent with the patient as well as time spent documenting in the medical record, reviewing patients records and tests, obtaining history, placing orders, communicating with other healthcare professionals, counseling the patient, family or caregiver, and/or care coordination for the diagnoses above. Electronically Signed by: Mat Frances MD T: 12:32 AM CC: PCP: Kaia Figueredo Referring: Kaia Figueredo This document was completed utilizing speech recognition software. Grammatical errors, random word insertions, pronoun errors, and incomplete sentences are an occasional consequence of this system due to software limitations, ambient noise, and hardware issues. Any formal questions or concerns about the content, text or information contained within the body of this dictation should be directly addressed to the provider for clarification.
== END 2024-08-27 23:59 | disposition home or self-care (01) ==
LOC: SCTC 10:51
PROVIDERS: PCP Nurse Practitioner Family; Referring Provider Nurse Practitioner Family; Visit Provider Internal Medicine Hematology & Oncology
DX: E83.119 Hemochromatosis, unspecified (principal); K76.0 Fatty (change of) liver, not elsewhere classified; K74.00 Hepatic fibrosis, unspecified; G47.33 Obstructive sleep apnea (adult) (pediatric); Z85.71 Personal history of Hodgkin lymphoma; Z92.21 Personal history of antineoplastic chemotherapy; Z94.81 Bone marrow transplant status
CPT/HCPCS: 99195; 99212; G0463

== ENCOUNTER → 2024-08-31 | Outpatient (CLI) | payer BC, OTHER, SELFPAY ==
[2024-08-31 11:40] LABS: Basophils % (Auto) 0 % (0-2.5); Eosinophils % (Auto) 0 % (0-10); Hematocrit 43.9 % (41.0-53.0); Hemoglobin 14.4 g/dL (13.5-16.0); Immature Granulocytes % (Auto) 1 % (0-0); Immature Granulocytes Auto 0.07 Thou/mm3 (0.00-0.00); Lymphocytes # (Auto) 3.3 Thou/mm3 (1.0-4.8); Lymphocytes % (Auto) 38 % (10-50); Mean Corpuscular HGB Conc 32.8 g/dl (31.0-37.0); Mean Corpuscular Hemoglobin 33.3 pg (25.0-35.0); Mean Corpuscular Volume 102 fL (80-100); Monocytes # (Auto) 0.6 Thou/mm3 (0.0-0.8); Monocytes % (Auto) 7 % (0-12); Neutrophils # (Auto) 4.6 Thou/mm3 (1.8-7.7); Neutrophils % (Auto) 53 % (37-80); Nucleated Red Blood Cell % 0 /100 WBC (0); Platelet Count 292 Thou/mm3 (140-440); Red Blood Count 4.32 Miln/mm3 (4.50-5.90); White Blood Count 8.6 Thou/mm3 (3.8-10.6)
[2024-08-31 11:57] LABS: Ferritin 72 ng/mL (10.5-307.3)
[2024-08-31 12:03] LABS: Alanine Aminotransferase 55 U/L (10-49); Albumin, Serum 4.4 gm/dL (3.5-5.0); Albumin/Globulin Ratio 1.7 (1.2-2.2); Alkaline Phosphatase 74 U/L (46-116); Anion Gap 15 (7-16); Aspartate Amino Transferase 65 U/L (0-34); BUN/Creatinine Ratio 7 Ratio (12-20); Bilirubin,Total 0.5 mg/dL (0.3-1.2); Blood Urea Nitrogen 8 mg/dL (9-23); Calcium 8.9 mg/dL (8.3-10.6); Calcium (Corrected) 8.9 mg/dL (8.5-10.1); Carbon Dioxide 22.5 mMol/L (20.0-31.0); Chloride 106 mMol/L (98-107); Creatinine (Component) 1.1 mg/dL (0.6-1.3); Globulin 2.6 gm/dL (2.3-3.5); Glucose 97 mg/dL (74-106); Osmolality,Calculated 283 (275-295); Potassium 4.4 mMol/L (3.4-5.1); Sodium 143 mMol/L (136-145); eGFR > 60 See Note
== END | disposition home or self-care (01) ==
LOC: SCTO 10:21
PROVIDERS: PCP Family Medicine; Referring Provider Internal Medicine Hematology & Oncology; Visit Provider Internal Medicine Hematology & Oncology
DX: R79.0 Abnormal level of blood mineral (principal)
CPT/HCPCS: 36415; 80053; 82105; 82728; 85025

== ENCOUNTER → 2024-11-14 | Outpatient (CLI) | payer BC, OTHER, SELFPAY ==
[2024-11-14 13:22] LABS: Basophils # (Auto) 0.1 Thou/mm3 (0.0-0.2); Basophils % (Auto) 1 % (0-2.5); Eosinophils # (Auto) 0.2 Thou/mm3 (0.0-0.5); Eosinophils % (Auto) 2 % (0-10); Hematocrit 46.7 % (41.0-53.0); Hemoglobin 15.4 g/dL (13.5-16.0); Immature Granulocytes Auto 0.04 Thou/mm3 (0.00-0.00); Lymphocytes # (Auto) 2.7 Thou/mm3 (1.0-4.8); Lymphocytes % (Auto) 30 % (10-50); Mean Corpuscular HGB Conc 33.0 g/dl (31.0-37.0); Mean Corpuscular Hemoglobin 32.2 pg (25.0-35.0); Mean Corpuscular Volume 98 fL (80-100); Monocytes # (Auto) 0.8 Thou/mm3 (0.0-0.8); Monocytes % (Auto) 9 % (0-12); Neutrophils # (Auto) 5.2 Thou/mm3 (1.8-7.7); Neutrophils % (Auto) 58 % (37-80); Nucleated Red Blood Cell # 0.00 Thou/mm3 (0.00-0.00); Nucleated Red Blood Cell % 0 /100 WBC (0); Platelet Count 205 Thou/mm3 (140-440); RDW Standard Deviation 48.6 fL (35.1-43.9); Red Blood Count 4.78 Miln/mm3 (4.50-5.90); White Blood Count 8.9 Thou/mm3 (3.8-10.6)
[2024-11-14 13:36] LABS: Ferritin 126 ng/mL (10.5-307.3)
[2024-11-14 13:39] LABS: Alanine Aminotransferase 61 U/L (10-49); Albumin, Serum 4.4 gm/dL (3.5-5.0); Albumin/Globulin Ratio 1.7 (1.2-2.2); Alkaline Phosphatase 80 U/L (46-116); Anion Gap 10 (7-16); Aspartate Amino Transferase 63 U/L (0-34); BUN/Creatinine Ratio 9 Ratio (12-20); Bilirubin,Total 0.8 mg/dL (0.3-1.2); Blood Urea Nitrogen 10 mg/dL (9-23); Calcium 10.0 mg/dL (8.3-10.6); Calcium (Corrected) 10.0 mg/dL (8.5-10.1); Carbon Dioxide 25.7 mMol/L (20.0-31.0); Chloride 106 mMol/L (98-107); Creatinine (Component) 1.1 mg/dL (0.6-1.3); Globulin 2.6 gm/dL (2.3-3.5); Glucose 108 mg/dL (74-106); Osmolality,Calculated 283 (275-295); Potassium 4.4 mMol/L (3.4-5.1); Sodium 142 mMol/L (136-145); Total Protein 7.0 gm/dL (5.7-8.2); eGFR > 60 See Note
== END | disposition home or self-care (01) ==
LOC: SCTO 12:34
PROVIDERS: PCP Family Medicine; Referring Provider Internal Medicine Hematology & Oncology; Visit Provider Internal Medicine Hematology & Oncology
DX: R79.0 Abnormal level of blood mineral (principal)
CPT/HCPCS: 36415; 80053; 82728; 85025

== ENCOUNTER 2024-11-15 14:18 | Outpatient (RCR) | payer BC, OTHER, SELFPAY ==
--- NOTE | 2024-11-14 12:22 | CTCFLWUP_ITS ---
Patient: DOM SAAVEDRA : 1985 Page 4 of 5 FOLLOW UP NOTE DATE OF SERVICE: 11/14/2024 NAME: DOM SAAVEDRA ACCOUNT: [id number] : 1985 AGE: 39 INTERVAL HISTORY: Patient did not do labs and was travelling for 2 months . HISTORY OF PRESENT ILLNESS: Patient is 39-year-old male who was diagnosed with Hodgkin lymphoma in 2014. Patient was treated with chemoradiation. His lymphoma was in the chest and lymph nodes. He had recurrence after 2 years and at that time was treated with chemotherapy and autologous bone marrow transplant. As per patient he has been in remission since then. He has never been told that he has elevated iron levels. No similar complaints in the family. After transplant patient Says that his hormone started dysfunctioning and he was diagnosed with hypothyroidism as well as low testosterone levels. Patient follows for elevated hemoglobin . ? 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 Adthyza - 97.5 mg 1 tab Daily 2. tamoxifen - 20 mg 1 tab Daily 3. testosterone cypionate - 200 mg/mL 0.5 mL Weekly Medications Last Reconciled by Janey Zavala MA on 11/14/2024 ALLERGIES: No Known Allergies REVIEW OF SYSTEMS: A complete 14-point review of systems was performed and is negative except as noted in interval history. PHYSICAL EXAMINATION: VITAL SIGNS: Temperature?99.2, B/P?144/98, Oxygen?Saturation?97% Weight?242?lbs PAIN: 0 - No pain ECOG Performance Status: None GENERAL APPEARANCE: Appears well, in no apparent distress, appropriately interactive. HEENT: Normocephalic, no temporal wasting, normal conjunctiva, no scleral icterus, normal hearing, lips without lesions, neck normal range of motion. CARDIOVASCULAR: Not assessed. PULMONARY: Normal respiratory effort, no respiratory distress or use of accessory muscles, speaking in full sentences, no tachypnea. EXTREMITIES: No pedal edema or cyanosis. SKIN: Normal skin appearance. NEUROLOGIC: Alert and oriented x4. PSHYCHIATRIC: Appropriate affect, mood normal, behavior normal, intact thought and speech. Physical Examination General: Patient does not look red like before. Skin: Some scars visible on eyelids and other soft spots. Previously had red bumps in these areas. Laboratory, Imaging, and Diagnostic Test Results - Date: 08/10/2024 - Ferritin: 14 ng/mL - Previous results: - Ferritin: ~100 ng/mL (08/09/2024), 1422 ng/mL (02/2024), ~2000 ng/mL (12/2023) - MRI Abdomen (date not specified): - Liver: Enlarged (17.1 cm), fatty liver, no focal liver lesions - Gallbladder: Normal, clinical gallbladder stones present - Common bile duct: Normal - Impression: Mild hepatomegaly, fatty liver, moderate liver fibrosis - Echocardiogram (date not specified): Normal heart function, normal call - Genetic testing (date not specified): - Hemochromatosis gene: Homozygous for H63D mutation - Cancer markers: Negative - JAK2 mutation: Positive (specific result not provided) - Other blood tests (dates not specified): - FLORINDA: Negative - Miscellaneous tests: Negative LABORATORY DATA: I have personally reviewed and interpreted each of the patient?s relevant lab tests, abnormal findings are below: Date 08/09/24 08/31/24 ??WHITE?BLOOD?COUNT?(Thou/mm3) 6.6 8.6 ??RED?BLOOD?COUNT?(Miln/mm3) 4.25?L 4.32?L ??HEMOGLOBIN?(gm/dl) 14.4 14.4 ??HEMATOCRIT?(%) 41.5 43.9 ??PLATELET?COUNT?(Thou/mm3) 318 292 ??NEUTROPHILS?%,?AUTO?(%) 50 53 ??LYMPH?%,?AUTO?(%) 39 38 ??NEUTROPHILS,?AUTO?(Thou/mm3) 3.3 4.6 ??GLUCOSE,RANDOM?(mg/dL) 114?H 97 ??BLOOD?UREA?NITROGEN?(mg/dL) 8?L 8?L ??CREATININE?(mg/dL) 1.10 1.10 ??SODIUM?(mmol/L) 138 143 ??POTASSIUM?(mmol/L) 4.3 4.4 ??CHLORIDE?(mmol/L) 104 106 ??CrCl?(CandG)?(ml/min) 111.85 110.79 ??AST/SGOT?(Unit/L) 46?H 65?H ??ALT/SGPT?(Unit/L) 41 55?H ??ALKALINE?PHOSPHATASE?(Unit/L) 79 74 ??BILIRUBIN,?TOTAL?(mg/dL) 0.2?L 0.5 ??PROTEIN?TOTAL?(gm/dl) 7.4 7.0 ??ALBUMIN,?SERUM?(gm/dl) 4.7 4.4 ??GLOBULIN?(gm/dl) 2.7 2.6 ??ALBUMIN/GLOBULIN?RATIO 1.7 1.7 ??CALCIUM,?SERUM?(mg/dL) 9.4 8.9 ??CALCIUM?SERUM?(CORRECTED)?(mg/dL) 9.4 8.9 ASSESSMENT/PLAN: Elevated ferritin concern for hemochromatosis ??Urbano Everett, 39-year-old male with history of Hodgkin's lymphoma (2014), chemotherapy, and bone marrow transplant, presenting for follow-up of hemochromatosis and liver fibrosis. Hemochromatosis Assessment: Patient has been undergoing phlebotomy treatments for hemochromatosis. Ferritin levels have significantly improved from initial levels of 2000+ in December to 1422 in February, and now approaching 100. Recent ferritin level was 14 on Thursday. The patient reports feeling better overall, with improvements in joint pain and general well-being. 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 Heart function is normal with no evidence of iron deposition. Plan: - Continue phlebotomy treatments, transitioning from every 2 weeks to monthly - Target ferritin level: below 50 - Provide IV fluids during phlebotomy treatments - Advise patient to avoid iron-rich foods - Schedule follow-up in 3 months Moderate Liver Fibrosis with Fatty Liver Assessment: MRI of abdomen reveals enlarged liver (17.1 cm), consistent with moderate liver fibrosis and fatty liver. No focal liver lesions were identified. Gallbladder appears normal with some clinical gallbladder stones noted. Common bile duct is normal. Plan: - Refer patient to liver specialist at higher-level center ([facility] or [facility]) - Recommend weight loss to primary care physician - Suggest consideration of weight-loss medication - Encourage exercise plan - Consider fasting as a potential weight loss strategy History of Hodgkin's Lymphoma Assessment: Patient has a history of Hodgkin's lymphoma diagnosed in 2015, treated with chemotherapy and bone marrow transplant. Currently in remission. Recent tests, including JAK2 mutation analysis, were negative for recurrence or other hematologic abnormalities. Plan: - Continue monitoring for recurrence as per oncology protocol Obstructive Sleep Apnea Assessment: Patient reports recent initiation of CPAP therapy. Currently able to tolerate CPAP for 1.5-2 hours per night, improved from initial tolerance of 30 minutes. Plan: - Encourage continued use and gradual increase in CPAP tolerance - Follow up on CPAP adherence and symptom improvement at next visitFibroScan shows mild to moderate liver fibrosis. Tissue stiffness 1.4 m/s Will get quantification of iron in the liver by MRI Will start on phlebotomy to keep ferritin below 100 as long as patient's hemoglobin is at least 10 Will do phlebotomy 500 mL of whole blood and replace it with 1 L of fluid every week CBC ferritin iron studies ORDERS: Order # Description [id number] Comprehensive Metabolic Panel - 12 + CBC with Auto Diff + MD Follow Up 2 Months RETURN TO CLINIC: I reviewed the diagnosis, prognosis, and recommended treatment/procedure options with the patient (and/or their legal in store representative), including the potential benefits, risks, side effects and alternative therapies. We also discussed the option of no treatment and the possibility of clinical trial participation, if applicable. All questions were addressed, and they demonstrated understanding. They provided informed consent to proceed with the proposed plan of care. BILLING AND COMPLIANCE: I reviewed external records from providers outside my specialty as summarized above. I spent a total of 50 minutes on this patient?s care on the day of their visit excluding time spent related to any billed procedures. This time includes time spent with the patient as well as time spent documenting in the medical record, reviewing patients records and tests, obtaining history, placing orders, communicating with other healthcare professionals, counseling the patient, family or caregiver, and/or care coordination for the diagnoses above. Electronically Signed by: {Object.Sanct_ID*PnP.NameFL@M}, {Object.Sanct_ID*PnP.Suffix@U} D: {Object.Sanct_Date} T: {Object.Sanct_Time} CC: PCP: Kaia Figueredo Referring: Kaia Figueredo This document was completed utilizing speech recognition software. Grammatical errors, random word insertions, pronoun errors, and incomplete sentences are an occasional consequence of this system due to software limitations, ambient noise, and hardware issues. Any formal questions or concerns about the content, text or information contained within the body of this dictation should be directly addressed to the provider for clarification.
== END 2024-11-27 23:59 | disposition home or self-care (01) ==
LOC: SCTC 14:18
PROVIDERS: PCP Nurse Practitioner Family; Referring Provider Nurse Practitioner Family; Visit Provider Internal Medicine Hematology & Oncology
DX: E83.119 Hemochromatosis, unspecified (principal); C81.9A Hodgkin lymphoma, unspecified, in remission; Z92.21 Personal history of antineoplastic chemotherapy; Z92.3 Personal history of irradiation; R16.0 Hepatomegaly, not elsewhere classified; Z94.81 Bone marrow transplant status; G47.33 Obstructive sleep apnea (adult) (pediatric)
CPT/HCPCS: 99195; 99212; J7030; G0463

== ENCOUNTER → 2024-12-13 | Outpatient (CLI) | payer BC, OTHER, SELFPAY ==
[2024-12-13 09:50] LABS: Basophils # (Auto) 0.1 Thou/mm3 (0.0-0.2); Basophils % (Auto) 1 % (0-2.5); Eosinophils # (Auto) 0.1 Thou/mm3 (0.0-0.5); Eosinophils % (Auto) 1 % (0-10); Hematocrit 46.0 % (41.0-53.0); Hemoglobin 15.0 g/dL (13.5-16.0); Immature Granulocytes Auto 0.07 Thou/mm3 (0.00-0.00); Lymphocytes # (Auto) 3.2 Thou/mm3 (1.0-4.8); Lymphocytes % (Auto) 28 % (10-50); Mean Corpuscular HGB Conc 32.6 g/dl (31.0-37.0); Mean Corpuscular Hemoglobin 31.6 pg (25.0-35.0); Mean Corpuscular Volume 97 fL (80-100); Monocytes # (Auto) 1.0 Thou/mm3 (0.0-0.8); Monocytes % (Auto) 9 % (0-12); Neutrophils # (Auto) 6.8 Thou/mm3 (1.8-7.7); Neutrophils % (Auto) 60 % (37-80); Nucleated Red Blood Cell # 0.00 Thou/mm3 (0.00-0.00); Nucleated Red Blood Cell % 0 /100 WBC (0); Platelet Count 282 Thou/mm3 (140-440); RDW Standard Deviation 51.0 fL (35.1-43.9); Red Blood Count 4.75 Miln/mm3 (4.50-5.90); White Blood Count 11.2 Thou/mm3 (3.8-10.6)
[2024-12-13 10:08] LABS: Alanine Aminotransferase 57 U/L (10-49); Albumin, Serum 4.5 gm/dL (3.5-5.0); Albumin/Globulin Ratio 1.5 (1.2-2.2); Alkaline Phosphatase 83 U/L (46-116); Anion Gap 11 (7-16); Aspartate Amino Transferase 51 U/L (0-34); BUN/Creatinine Ratio 5 Ratio (12-20); Bilirubin,Total 0.6 mg/dL (0.3-1.2); Blood Urea Nitrogen 7 mg/dL (9-23); Calcium 9.7 mg/dL (8.3-10.6); Calcium (Corrected) 9.7 mg/dL (8.5-10.1); Carbon Dioxide 27.1 mMol/L (20.0-31.0); Chloride 104 mMol/L (98-107); Creatinine (Component) 1.3 mg/dL (0.6-1.3); Ferritin 35 ng/mL (10.5-307.3); Globulin 3.0 gm/dL (2.3-3.5); Glucose 107 mg/dL (74-106); Osmolality,Calculated 281 (275-295); Potassium 4.2 mMol/L (3.4-5.1); Sodium 142 mMol/L (136-145); Total Protein 7.5 gm/dL (5.7-8.2); eGFR > 60 See Note
== END | disposition home or self-care (01) ==
LOC: SCTO 08:31
PROVIDERS: PCP Family Medicine; Referring Provider Internal Medicine Hematology & Oncology; Visit Provider Internal Medicine Hematology & Oncology
DX: R79.0 Abnormal level of blood mineral (principal)
CPT/HCPCS: 36415; 80053; 82728; 85025

== ENCOUNTER → 2025-02-02 | Outpatient (CLI) | payer BC, OTHER, SELFPAY ==
[2025-02-02 10:51] LABS: Misc Send Out* See Sep Rpt
[2025-02-02 11:26] LABS: Basophils # (Auto) 0.1 Thou/mm3 (0.0-0.2); Basophils % (Auto) 1 % (0-2.5); Eosinophils # (Auto) 0.2 Thou/mm3 (0.0-0.5); Eosinophils % (Auto) 2 % (0-10); Hematocrit 50.1 % (41.0-53.0); Hemoglobin 16.6 g/dL (13.5-16.0); Immature Granulocytes Auto 0.07 Thou/mm3 (0.00-0.00); Lymphocytes # (Auto) 2.6 Thou/mm3 (1.0-4.8); Lymphocytes % (Auto) 34 % (10-50); Mean Corpuscular HGB Conc 33.1 g/dl (31.0-37.0); Mean Corpuscular Hemoglobin 32.0 pg (25.0-35.0); Mean Corpuscular Volume 97 fL (80-100); Monocytes # (Auto) 0.6 Thou/mm3 (0.0-0.8); Monocytes % (Auto) 8 % (0-12); Neutrophils # (Auto) 4.2 Thou/mm3 (1.8-7.7); Neutrophils % (Auto) 54 % (37-80); Nucleated Red Blood Cell # 0.00 Thou/mm3 (0.00-0.00); Nucleated Red Blood Cell % 0 /100 WBC (0); Platelet Count 285 Thou/mm3 (140-440); RDW Standard Deviation 47.9 fL (35.1-43.9); Red Blood Count 5.18 Miln/mm3 (4.50-5.90); White Blood Count 7.7 Thou/mm3 (3.8-10.6)
[2025-02-02 11:41] LABS: Prostate Specific Antigen 0.53 ng/mL (0-4.00)
[2025-02-02 11:46] LABS: Alanine Aminotransferase 87 U/L (10-49); Albumin, Serum 4.8 gm/dL (3.5-5.0); Albumin/Globulin Ratio 2.0 (1.2-2.2); Alkaline Phosphatase 89 U/L (46-116); Anion Gap 11 (7-16); Aspartate Amino Transferase 65 U/L (0-34); BUN/Creatinine Ratio 6 Ratio (12-20); Bilirubin,Total 0.4 mg/dL (0.3-1.2); Blood Urea Nitrogen 7 mg/dL (9-23); C-Reactive Protein 0.8 mg/dL (0.0-0.9); Calcium 9.6 mg/dL (8.3-10.6); Calcium (Corrected) 9.6 mg/dL (8.5-10.1); Carbon Dioxide 26.0 mMol/L (20.0-31.0); Cardiac Risk Estimate 4.9 RATIO (4.0-6.7); Chloride 106 mMol/L (98-107); Cholesterol 210 mg/dL (132-200); Creatinine (Component) 1.1 mg/dL (0.6-1.3); Free T4 (Free Thyroxine) 0.72 ng/dL (0.89-1.76); Globulin 2.4 gm/dL (2.3-3.5); Glucose 100 mg/dL (74-106); HDL Cholesterol 43 mg/dL (40-60); LDL Cholesterol,Calculated 135 mg/dL (0-130); Osmolality,Calculated 282 (275-295); Potassium 4.0 mMol/L (3.4-5.1); Sodium 143 mMol/L (136-145); Thyroid Stimulating Hormone 5.06 uIU/mL (0.55-4.78); Total Protein 7.2 gm/dL (5.7-8.2); Triglycerides 159 mg/dL (30-150); Uric Acid 8.6 mg/dL (3.7-9.2); eGFR > 60 See Note
[2025-02-08 07:40] LABS: Estradiol, Ultrasensitive* 74 pg/mL (< OR = 29); Testosterone, Free,Dialysis 91.7 pg/mL (35.0-155.0); Testosterone, Total, Dialysis 545 ng/dL (250-1100)
== END | disposition home or self-care (01) ==
LOC: COPL 10:29
PROVIDERS: PCP Nurse Practitioner Family; Referring Provider Nurse Practitioner Family; Visit Provider Nurse Practitioner Family
DX: K76.0 Fatty (change of) liver, not elsewhere classified (principal); R16.0 Hepatomegaly, not elsewhere classified; M10.9 Gout, unspecified; E89.0 Postprocedural hypothyroidism; M62.81 Muscle weakness (generalized); E29.1 Testicular hypofunction
CPT/HCPCS: 36415; 80053; 80061; 82670; 84153; 84402; 84403; 84439; 84443; 84550; 85025; 86140

== ENCOUNTER → 2025-02-13 | Outpatient (CLI) | payer BC, OTHER, SELFPAY ==
[2025-02-13 12:19] LABS: Uric Acid 7.9 mg/dL (3.7-9.2)
== END | disposition home or self-care (01) ==
LOC: COPL 10:59
PROVIDERS: PCP Nurse Practitioner Family; Referring Provider Nurse Practitioner Family; Visit Provider Nurse Practitioner Family
DX: M10.9 Gout, unspecified (principal)
CPT/HCPCS: 36415; 84550